=== PATIENT | male | born 1985 | race Caucasian/White ===

== ENCOUNTER 2024-07-20 13:34 | Emergency (ER) | payer MEDICAID ==
[~2024-07-20] VITALS: Ht 180.3 cm; Wt 71.7 kg
[2024-07-20] MEDS ORDERED: INSULIN REGULAR, HUMAN 100 UNIT/ML 10 ML VIAL ONE (14:30)
[2024-07-20] MEDS: INSULIN REGULAR, HUMAN 100 UNIT/ML 10 ML VIAL SQ ONE (14:35)
[2024-07-20] MEDS ORDERED: INSU100V7 SQ (14:56)
[2024-07-20] MEDS ORDERED: INSU100V3 IJ (14:56)
[2024-07-20 15:27] VITALS: BP 119/90; TEMP 98.2; O2SAT 98
[2024-07-20] MEDS ORDERED: SYRI-614 SUBCUT (20:09)
== END 2024-07-20 15:28 | disposition home or self-care (01) ==
LOC: ER 13:41
DX: E10.65 Type 1 diabetes mellitus with hyperglycemia (principal); Z76.0 Encounter for issue of repeat prescription; Z79.4 Long term (current) use of insulin
CPT/HCPCS: 99283; 96372; J1815